=== PATIENT | female | born 1985 | race Caucasian/White ===

== ENCOUNTER 2018-02-16 23:44 | Inpatient (IN) | payer OTHER, SELFPAY ==
[2018-02-17 00:20] LABS: #Basophils 0.1 thou/uL (0.0-0.2); #Eosinphils 0.7 thou/uL (0.0-0.7); #Lymphocytes 3.4 thou/uL (1.20-3.40); #Monocytes 1.1 thou/uL (0.11-0.59); #Neutrophils 10.4 thou/uL (1.40-6.50); %Basophils 0.9 % (0.0-1.0); %Eosinophils 4.5 % (0.0-10.0); %Lymphocytes 21.6 % (21.0-51.0); %Monocytes 6.9 % (0.0-10.0); Hemoglobin 15.6 g/dL (12.0-16.0); Mean Corpuscular HGB CONC 33.3 g/dL (32.0-36.0); Mean Corpuscular Hemoglobin 31.4 pg (27.0-31.0); Mean Corpuscular Volume 94.2 fL (78.0-98.0); Mean Platelet Volume 7.8 fL (7.4-10.4); Platelet Count 286 thou/uL (130-400); RBC Distribution Width 12.2 % (11.5-14.5); Red Blood Cell (RBC) Count 4.98 mill/uL (4.20-5.40); White Blood Cell (WBC) Count 15.8 thou/uL (4.8-10.8)
[2018-02-17] MEDS ORDERED: Morphine 4 MG/ML VIAL ONE ×2 (00:24→01:57)
[2018-02-17] MEDS ORDERED: Ondansetron PF 4 MG/2 ML Vial ONE ×2 (00:24→11:09)
[2018-02-17] MEDS ORDERED: Ketorolac Tromethamine 30 MG/ML VIAL ONE ×2 (00:57→11:09)
[2018-02-17 01:45] LABS: BHCG - Serum Negative (NEGATIVE); Pregs Control Background? CLEAR/WHITE (CLR/WHITE); Pregs Control Bar Appear? YES (CONTROL BAR)
[2018-02-17] MEDS ORDERED: diphenhydrAMINE 50 MG/ML VIAL ONE (02:06)
[2018-02-17 02:11] LABS: ALT (SGPT) 24 U/L (8-55); AST (SGOT) 16 U/L (5-34); Albumin 3.9 g/dL (3.5-5.0); Alkaline Phosphatase 110 U/L (40-150); Anion Gap 13 mmol/L (10-20); BUN (Urea Nitrogen) 14 mg/dL (7.0-18.7); Bilirubin, Total 0.4 mg/dL (0.2-1.2); CK (CPK) 31 U/L (29-168); Calc. Creatinine Clearance 0 mL/min (70-130); Calcium 8.8 mg/dL (7.8-10.44); Carbon Dioxide 24 mmol/L (22-29); Chloride 105 mmol/L (98-107); Estimated GFR-MDRD 74; Globulin 2.8 g/dL (2.4-3.5); Glucose 118 mg/dL (70-105); Potassium 4.7 mmol/L (3.5-5.1); Protein, Total 6.7 g/dL (6.0-8.3); Sodium 137 mmol/L (136-145)
[2018-02-17] MEDS ORDERED: Ondansetron PF 4 MG/2 ML Vial IVP PRN (04:06)
[2018-02-17] MEDS ORDERED: Ondansetron ODT 4 MG TAB SL PRN (04:06)
[2018-02-17] MEDS ORDERED: Acetaminophen 1,000 MG in Premix Bag 1 BAG IVPB PRN (04:06)
[2018-02-17] MEDS: Sodium Chloride 0.9% 1,000 ML IV SCH ×2 (04:51→15:05)
--- NOTE | 2018-02-17 08:13 | RAD ---
PORTABLE UPRIGHT FRONTAL CHEST RADIOGRAPH: DATE: 02/17/2018. COMPARISON: None. HISTORY: Chest pain. FINDINGS: No pneumothorax, pleural fluid, focal consolidation, or alveolar edema. Heart and mediastinal contou rs appear grossly unremarkable. IMPRESSION: No acute findings. POS: [facility]
--- NOTE | 2018-02-17 08:54 | ULT ---
PRELIMINARY REPORT/[facility]/EMERGENTY AFTER-HOURS PROCEDURE US Abdomen Limited, Right Upper Quadrant EXAM DATE/TIME: 02/17/2018 12:41 AM CLINICAL HISTORY: 33 years old, female; Pain and signs and symptoms; Nausea and vomiting; Abdominal pain; Other: Epigas tric pain that radiates to back TECHNIQUE: Real-time ultrasound of the abdomen with image documentation. Examination was focused on the right up per quadrant. COMPARISON: No relevant prior studies available. FINDINGS: Liver: Hepatic steatosis. Gallbladder: Gallbladder is distended. Large gallstone at the neck of the gallbladder. No gallbladder wall thickening or pericholecystic fluid. No gallbladder wall thickening or pericholecystic fluid. S onographic Mcclendon sign is reported positive. Common bile duct: Normal. No stones. No dilation. Pancreas: Visualized pancreas is unremarkable. Right kidney: Normal. No mass. No hydronephrosis. IMPRESSION: 1. Cholelithiasis. No cholecystitis. 2. Cholelithiasis. Distended gallbladder with reported positive sonographic Mcclendon's sign; however, n o gallbladder wall thickening or pericholecystic fluid to definitively indicate acute cholecystitis. Early cholecystitis not excluded. Consider CT scan, preferably with intravenous contrast. Thank you for allowing us to participate in the care of your patient. Dictated and Authenticated by: Konstantin Muhammad MD 02/17/2018 1:11 AM Central Time ([place] & [place]) FINAL REPORT RIGHT UPPER QUADRANT ULTRASOUND: Date: 02/17/18 HISTORY: Nausea and vomiting. Right upper quadrant pain. FINDINGS: Imaged pancreas unremarkable. No focal liver lesion or intrahepatic biliary dilatation noted. There is a prominent stone in the region of the gallbladder neck measuring at least 2.6 cm in transve rse dimension. The commodities broker reports a positive Mcclendon's sign. No gallbladder wall thickening. No p ericholecystic fluid. Right kidney measures 9.5 cm craniocaudal dimension and demonstrates no evidence for stone, hydroneph rosis, or mass lesion. On decubitus imaging, the stone within the region of the gallbladder neck is not new, suggesting that it is potentially impacted in the region of the neck. CBD measures 5.0 mm, within normal limits. IMPRESSION: Cholelithiasis with positive Mcclendon's sign. Findings could represent acute cholecystitis in the prope r clinical setting, but no gallbladder wall thickening is seen and there is no pericholecystic fluid. If further imaging assessment is clinically warranted, a hepatobiliary scan would be the study of ch oice to evaluate for patency of the cystic duct. This report is in agreement with the preliminary report given by Edith. POS: [facility]
--- NOTE | 2018-02-17 08:56 | CT ---
PRELIMINARY REPORT/[facility]/EMERGENTY AFTER-HOURS PROCEDURE CT Abdomen and Pelvis With Contrast EXAM DATE/TIME: 02/17/2018 1:52 AM CLINICAL HISTORY: 33 years old, female; Pain; Abdominal pain; Localized; Right upper quadrant (ruq); Patient HX: Er 8; 33 y/o f with no pmhx presents with acute onset of upper abdominal pain. She reports that it is assoc iated with SOB, n/v, and dizziness. She had 4 episodes of emesis on the way here. She took two baby aspirin at home. She has never experienced a pain like this before. She denies f/c, dysuria, hematuria, diarrhea TECHNIQUE: Axial computed tomography images of the abdomen and pelvis with intravenous contrast. Coronal reforma tted images were created and reviewed. COMPARISON: US Gallbladder RUQ 02/17/2018 12:41 AM FINDINGS: Lower thorax: No acute findings. ABDOMEN: Liver: Hepatic steatosis. Gallbladder and bile ducts: Gallbladder is distended and there is minimal inflammatory prominence of the gallbladder wall, consistent with acute cholecystitis. No biliary ductal dilatation. Noncalcified gallstone at the neck of the gallbladder. Pancreas: Normal. No ductal dilation. Spleen: Normal. No splenomegaly. Adrenals: Normal. No mass. Kidneys and ureters: Extensive cortical scarring of the right kidney. Kidneys otherwise unremarkable. Stomach and bowel: Normal. No obstruction. No mucosal thickening. Appendix: Normal appendix. PELVIS: Bladder: Unremarkable as visualized. Reproductive: Unremarkable as visualized. ABDOMEN and PELVIS: Intraperitoneal space: Normal. No free air. No significant fluid collection. Bones/joints: No acute fracture. No dislocation. Soft tissues: Unremarkable. Vasculature: Normal. No abdominal aortic aneurysm. Lymph nodes: Normal. No enlarged lymph nodes. IMPRESSION: 1. Gallbladder is distended and there is minimal inflammatory prominence of the gallbladder wall, con sistent with acute cholecystitis. 2. Noncalcified gallstone at the neck of the gallbladder. Thank you for allowing us to participate in the care of your patient. Dictated and Authenticated by: Konstantin Muhammad MD 02/17/2018 2:03 AM Central Time ([place] & [place]) FINAL REPORT EMERGENT AFTER HOURS CT ABDOMEN AND SANDIE WITH IV CONTRAST: DATE: 02/17/2018. HISTORY: Acute onset of right upper quadrant abdominal pain. Cholelithiasis. Nausea, vomiting, and shortness of breath. IMPRESSION: 1. No CT evidence of appendicitis. 2. Atrophy right kidney with multiple focal areas of scarring involving the right kidney. 3. Distention of the gallbladder. There is a calculus in the neck of the gallbladder which is not c alcified and better visualized on right upper quadrant ultrasound obtained just prior to this exam. There are very slight adjacent pericholecystic inflammatory changes present. In the correct clinical scenario, findings could be related to cholecystitis. The common duct is not dilated. 4. No CT evidence of appendicitis. 5. Right renal atrophy and multifocal areas of cortical scarring involving the right kidney. 6. Findings are in agreement with the preliminary report by [facility]. POS: [facility]
[2018-02-17 10:55] LABS: #Basophils 0.1 thou/uL (0.0-0.2); #Eosinphils 0.6 thou/uL (0.0-0.7); #Lymphocytes 3.3 thou/uL (1.20-3.40); #Neutrophils 7.6 thou/uL (1.40-6.50); %Basophils 0.7 % (0.0-1.0); %Lymphocytes 26.1 % (21.0-51.0); %Monocytes 8.1 % (0.0-10.0); %Neutrophils 60.1 % (42.0-75.0); Hemoglobin 13.7 g/dL (12.0-16.0); Mean Corpuscular Hemoglobin 32.6 pg (27.0-31.0); Mean Corpuscular Volume 93.2 fL (78.0-98.0); Mean Platelet Volume 7.5 fL (7.4-10.4); Platelet Count 254 thou/uL (130-400); RBC Distribution Width 11.9 % (11.5-14.5); Red Blood Cell (RBC) Count 4.19 mill/uL (4.20-5.40); White Blood Cell (WBC) Count 12.7 thou/uL (4.8-10.8)
[2018-02-17] MEDS ORDERED: Rocuronium Bromide 10 MG/ML (10ML VIAL) ONE (11:09)
[2018-02-17] MEDS ORDERED: PROPOFOL 200 MG/20 ML VIAL ONE (11:09)
[2018-02-17] MEDS ORDERED: Glycopyrrolate 0.2 MG/ML 5 ML SYRINGE ONE (11:09)
[2018-02-17] MEDS ORDERED: Lidocaine 1% PF 5 ML VIAL ONE (11:09)
[2018-02-17] MEDS ORDERED: ISOVUE-370 76%-LOCM 1 ML ONE (11:21)
[2018-02-17] MEDS ORDERED: Bupivacaine/Epinephrine 0.25% 30 ML VIAL ONE (11:36)
[2018-02-17] MEDS ORDERED: Fentanyl 100 MCG/2 ML VIAL ONE (11:51)
--- NOTE | 2018-02-17 11:56 | HP ---
CHIEF COMPLAINT: Epigastric abdominal pain. HISTORY OF PRESENT ILLNESS: The patient is an obese 33-year-old white female. She presented to the emergency room last night complaining of chest pain radiating through her back and right shoulder. She had several episodes of emesis. In the emergency room, she was evaluated with radiological and laboratory studies. The laboratory studies revealed elevated white blood cell count of 15.8 with hemoglobin of 15.6. Chemistry profile was normal except for slightly elevated glucose level of 118. Ultrasound was obtained initially revealing cholelithiasis. For some reason, a CT scan was also obtained again confirming cholelithiasis and a distended gallbladder without any other significant abnormal findings. She was admitted to my service. PAST MEDICAL HISTORY: Negative. PAST SURGICAL HISTORY: None. MEDICATIONS: None. ALLERGIES: PENICILLIN, HYDROCODONE, CODEINE, AND MORPHINE (SHE APPARENTLY HAD AN ALLERGIC REACTION TO MORPHINE LAST NIGHT). PERSONAL AND SOCIAL HISTORY: She is single and has never been . She has two children. She smokes about a pack of cigarettes per week. She does not drink alcohol. She works at a local hotel. She does not have a primary care physician. Although, she had lived here for her entire life. She had moved to [place] a couple of years ago and moved back about 2 months ago. PHYSICAL EXAMINATION: VITAL SIGNS: She is afebrile. Vital signs within normal limits. GENERAL: She is a well-developed, well-nourished, pleasant white female, resting in bed, in no acute distress. She is asleep when I arrived. She is alert and oriented x3. HEAD, EYES, EARS, NOSE, AND THROAT: Unremarkable. NECK: Supple without mass or tenderness. LUNGS: Clear to auscultation throughout. CARDIAC: Regular rate and rhythm without murmur. ABDOMEN: Soft without focal tenderness this time. EXTREMITIES: Unremarkable. ASSESSMENT: The patient with cholelithiasis and an episode of severe biliary colic. When she presented, she had a gallstone stuck in the neck of her gallbladder causing the pain. I recommend laparoscopic cholecystectomy. I discussed the operation in detail with the patient as well as potential risks. She understands and agrees to proceed with surgery at this time. Job ID: [id number]
[2018-02-17] MEDS ORDERED: Lidocaine 2% Jelly 5 ML TUBE ONE (12:38)
[2018-02-17] MEDS ORDERED: Midazolam HCl 2 mg/2 ml Vial ONE (12:38)
[2018-02-17] MEDS ORDERED: CEFAZOLIN 2 GM/50 ML BAG ONE (12:44)
[2018-02-17] MEDS ORDERED: Ondansetron HCl/PF 4 MG/2 ML Vial IVP PRN (14:13)
[2018-02-17] MEDS ORDERED: Promethazine HCl 25 MG/ML VIAL SLOW IVP PRN (14:13)
[2018-02-17] MEDS ORDERED: Promethazine HCl 25 MG/ML VIAL IM PRN (14:13)
[2018-02-17] MEDS ORDERED: Albuterol Sulfate HFA (OR ONLY) ONE (14:18)
[2018-02-17 17:32] VITALS: BP 109/58
[2018-02-17 17:33] VITALS: TEMP 97.5
--- NOTE | 2018-02-18 16:38 | OP ---
DATE OF PROCEDURE: 02/17/2018 PREOPERATIVE DIAGNOSIS: Symptomatic cholelithiasis with cholecystitis. POSTOPERATIVE DIAGNOSIS: Symptomatic cholelithiasis with cholecystitis. OPERATION PERFORMED: Laparoscopic cholecystectomy. ANESTHESIA: General endotracheal. INDICATIONS: The patient is a 33-year-old white female. She presents with symptoms referable to her gallbladder and ultrasound proven cholelithiasis. She was taken to the operative room at this time for laparoscopic cholecystectomy. DESCRIPTION OF PROCEDURE: Informed consent was obtained. The patient was taken to the operating room where general endotracheal anesthesia was obtained with the patient in the supine position. The abdomen was prepped with Betadine and draped in the usual sterile fashion. 0.25% Marcaine with epinephrine was infiltrated below the umbilicus and a 10 mm infraumbilical incision was created. A Veress needle was passed through this incision into the peritoneal cavity. A pneumoperitoneum was established using carbon dioxide up to a pressure of 15 mmHg. Local anesthetic was infiltrated and 3 additional 5 mm right upper quadrant incisions were created. Through the mid incision, a 5 mm port was passed into the peritoneal cavity. The camera was passed through this port and under direct vision, an 11 port was passed through the infraumbilical incision. The camera was replaced through this port, and under direct vision, 2 additional 5 mm ports were passed through the incisions already created. The gallbladder was grasped and retracted in a cephalad direction. Minimal adhesions were bluntly stripped away from the apex of the gallbladder, and the apex was retracted laterally and inferiorly. Careful dissection was carried out to the apex of the gallbladder to identify the cystic duct and cystic artery. These were each carefully dissected circumferentially. The duct was of normal caliber. Both the duct and the artery were divided between clips, leaving 2 on the side to remain within the abdomen. The gallbladder was then dissected out of the gallbladder fossa using electrocautery and removed through the infraumbilical port site. The fascia was closed with 0 Vicryl suture and a GraNee needle. The right upper quadrant was inspected and irrigated. All irrigant was aspirated. All ports and instruments were removed under direct vision. Pneumoperitoneum was carefully evacuated. Additional local anesthetic was infiltrated into each port site. The skin edges were approximated with 4-0 Monocryl subcuticular sutures, and Dermabond was placed externally. There were no complications. The patient tolerated the procedure well and was taken to the recovery room in stable condition. FINDINGS: The patient had a single large obstructing gallstone. The duct was small and noninflamed. There were moderate adhesions to the gallbladder. There was essentially no blood loss during the course of the operation. Job ID: [id number]
== END 2018-02-17 17:36 | disposition home or self-care (01) | DRG 419 ==
LOC: ERS 23:44 → SURG A 02-17 03:45
PROVIDERS: ADMIT Specialist; ATTEND Specialist
PROC: 0FT44ZZ Resection of Gallbladder, Percutaneous Endoscopic Approach (ICD-10-PCS; principal; 2018-02-17)
DX: K80.62 Calculus of gallbladder and bile duct with acute cholecystitis without obstruction (principal); F17.210 Nicotine dependence, cigarettes, uncomplicated; Z88.0 Allergy status to penicillin; Z88.5 Allergy status to narcotic agent; Z88.8 Allergy status to other drugs, medicaments and biological substances
CPT/HCPCS: 36415; 71045; 74177; 76705; 80053; 82550; 83690; 84484; 84703; 85025; 88304; 93005; 94760; 96365; 96375; 96376; J0131; J1200; J1885; J1956; J2001; J2250; J2270; J2405; J2704; J3010

== ENCOUNTER 2018-02-19 17:04 | Observation (INO) | payer SELFPAY ==
[~2018-02-19 17:04] MED LIST: Iopamidol 370 76% 100 ML VIAL ONE
[2018-02-19 17:34] LABS: #Eosinphils 0.5 thou/uL (0.0-0.7); #Lymphocytes 2.6 thou/uL (1.20-3.40); #Monocytes 0.9 thou/uL (0.11-0.59); #Neutrophils 9.5 thou/uL (1.40-6.50); %Basophils 0.3 % (0.0-1.0); %Eosinophils 3.5 % (0.0-10.0); %Lymphocytes 19.2 % (21.0-51.0); %Monocytes 6.4 % (0.0-10.0); %Neutrophils 70.6 % (42.0-75.0); Hemoglobin 15.1 g/dL (12.0-16.0); Mean Corpuscular HGB CONC 34.8 g/dL (32.0-36.0); Mean Corpuscular Hemoglobin 32.2 pg (27.0-31.0); Mean Corpuscular Volume 92.5 fL (78.0-98.0); Platelet Count 301 thou/uL (130-400); RBC Distribution Width 11.7 % (11.5-14.5); Red Blood Cell (RBC) Count 4.67 mill/uL (4.20-5.40); White Blood Cell (WBC) Count 13.4 thou/uL (4.8-10.8)
[2018-02-19] MEDS ORDERED: Fentanyl 100 MCG/2 ML VIAL ONE ×2 (17:36→20:38)
[2018-02-19] MEDS ORDERED: Ketorolac Tromethamine 30 MG/ML VIAL ONE (17:36)
[2018-02-19] MEDS ORDERED: Ondansetron PF 4 MG/2 ML Vial ONE (17:36)
[2018-02-19 17:55] LABS: ALT (SGPT) 27 U/L (8-55); AST (SGOT) 20 U/L (5-34); Albumin 4.2 g/dL (3.5-5.0); Alkaline Phosphatase 95 U/L (40-150); Anion Gap 16 mmol/L (10-20); BUN (Urea Nitrogen) 10 mg/dL (7.0-18.7); Bilirubin, Total 0.9 mg/dL (0.2-1.2); Calc. Creatinine Clearance 0 mL/min (70-130); Calcium 9.4 mg/dL (7.8-10.44); Carbon Dioxide 23 mmol/L (22-29); Chloride 101 mmol/L (98-107); Estimated GFR-MDRD Greater than 90; Globulin 3.1 g/dL (2.4-3.5); Glucose 95 mg/dL (70-105); Lipase 8 U/L (8-78); Potassium 3.9 mmol/L (3.5-5.1); Protein, Total 7.3 g/dL (6.0-8.3); Sodium 136 mmol/L (136-145)
[2018-02-19] MEDS ORDERED: MEROPENEM 1 GM/50 ML 1 GM in Premix Bag 1 BAG IVPB SCH (18:45)
[2018-02-19] MEDS ORDERED: Promethazine HCl 25 MG/ML VIAL ONE (21:40)
[2018-02-19 22:05] LABS: Bilirubin Negative (Negative); Blood, Urine Negative (Negative); Clarity CLEAR (Clear); Glucose, Urine (Dipstick) Negative (Negative); Leukocyte Negative (Negative); Nitrite Negative (Negative); Protein, Urine (Dipstick) Negative (Neg-Trace)
--- NOTE | 2018-02-19 23:04 | CT ---
ABDOMEN AND PELVIS CT SCAN WITH IV CONTRAST: History: Status post cholecystectomy with vomiting. FINDINGS: Lung bases appear clear. There is some mild fat stranding in the operative bed and surrounding mesent dora consistent with routine post cholecystectomy change. No ductal dilatation. Pancreas, spleen, and adrenal glands are unremarkable. Scarring of the right kidney. There is some minimal thickening and f at stranding at the level of the umbilicus, again post-surgical. No significant free intraperitoneal fluid. No bowel obstruction. Normal appearing appendix. No abscess or abnormal fluid collection. Gillian ral borderline sized small bowel loops, possibly some mild ileus. IMPRESSION: Recent post op cholecystectomy changes. No abscess. No ductal dilatation. No evidence for biloma or o ther abnormal fluid collection. Stable scarring of the right kidney. Normal appearing appendix. No ot her significant acute process. POS: [facility]
[2018-02-19] MEDS ORDERED: Mag-Al 1200 mg/1200 mg/30 ML UDCUP PO PRN (23:27)
[2018-02-19] MEDS ORDERED: Promethazine HCl 25 MG/ML VIAL IM PRN (23:27)
[2018-02-19] MEDS ORDERED: Calcium Carbonate 500 MG ChewTAB PO PRN (23:27)
[2018-02-19] MEDS ORDERED: Acetaminophen 1,000 MG in Premix Bag 1 BAG IVPB PRN (23:27)
[2018-02-19] MEDS ORDERED: Ondansetron PF 4 MG/2 ML Vial IVP PRN (23:27)
[2018-02-19] MEDS ORDERED: Dextrose 5% in Water 1,000 ML IV PRN (23:27)
[2018-02-19] MEDS ORDERED: Dextrose 50% Abboject 50 ML SYRINGE SLOW IVP PRN (23:27)
[2018-02-19] MEDS ORDERED: hydrALAZINE 20 MG/ML VIAL SLOW IVP PRN (23:27)
[2018-02-20] MEDS: D5 1/2 NS w/20 mEq KCL 1,000 ML IV SCH ×3 (00:01→21:18)
[2018-02-20 00:37] VITALS: BMI 33.7
[2018-02-20] MEDS: Ketorolac Tromethamine 30 MG/ML VIAL IVP PRN ×2 (02:18→11:47)
[2018-02-20] MEDS: Meropenem 2 GM in Sodium Chloride 0.9% 100 ML IVPB SCH ×3 (04:09→22:00)
[2018-02-20] MEDS ORDERED: Ondansetron ODT 4 MG TAB PO PRN (12:58)
[2018-02-20 13:17] LABS: #Basophils 0.1 thou/uL (0.0-0.2); #Eosinphils 0.7 thou/uL (0.0-0.7); #Lymphocytes 3.1 thou/uL (1.20-3.40); #Monocytes 0.7 thou/uL (0.11-0.59); #Neutrophils 5.9 thou/uL (1.40-6.50); %Basophils 0.7 % (0.0-1.0); %Eosinophils 6.5 % (0.0-10.0); %Lymphocytes 29.4 % (21.0-51.0); %Monocytes 6.6 % (0.0-10.0); %Neutrophils 56.8 % (42.0-75.0); Hemoglobin 13.9 g/dL (12.0-16.0); Mean Corpuscular HGB CONC 34.1 g/dL (32.0-36.0); Mean Corpuscular Hemoglobin 31.7 pg (27.0-31.0); Mean Corpuscular Volume 92.9 fL (78.0-98.0); Mean Platelet Volume 7.5 fL (7.4-10.4); Platelet Count 280 thou/uL (130-400); RBC Distribution Width 11.7 % (11.5-14.5); Red Blood Cell (RBC) Count 4.37 mill/uL (4.20-5.40); White Blood Cell (WBC) Count 10.4 thou/uL (4.8-10.8)
--- NOTE | 2018-02-20 13:23 | PRG ---
DATE OF SERVICE: 02/20/2018 SUBJECTIVE: Ms. Vargas is postoperative day #3 from laparoscopic cholecystectomy. Her surgery was uneventful. She did have a large impacted obstructing gallstone at the time of surgery. She was discharged home shortly after surgery. She returned to the emergency room last night and was admitted in my absence by Dr. Phillips. She was complaining of some pain with nausea and vomiting. She apparently could not stop vomiting. She had been discharged home with tramadol, but no nausea medication. She was admitted and placed on IV fluids and given Toradol and clear liquid diet. Her laboratory evaluation when she was admitted last night showed that she had a white blood cell count that was elevated at 13.4, hemoglobin was stable at 15.1. Her chemistry profile was entirely normal. Her creatinine was 0.7, actually down from her last lab study. Her liver function tests were normal as was her lipase. A CT scan that was obtained at the time of her readmission was unremarkable, showing no evidence of any fluid collection or significant inflammatory change. She tells me today that she still "feels miserable." She is having trouble with nausea. She has not been out of bed since she has been admitted. She has tried some clear liquids. She has not had a bowel movement since surgery. PHYSICAL EXAMINATION: VITAL SIGNS: On examination, she is afebrile with temperature of 97.7, pulse is 78 and stable, and blood pressure is 120/66. LUNGS: Clear to auscultation. ABDOMEN: Soft. All incisions are healing nicely. She has hypoactive bowel sounds. ASSESSMENT: Overall, she appears to be stable. I am not certain why she is having issues with nausea. She does not seem to have any surgical or medical reason for this. I will treat her constipation with enema and MiraLAX. I am going to repeat her CBC to see if her white blood cell count has normalized after a night of IV fluids. It does not look like she would be ready to go home today, and hopefully therefore with nausea medication and some IV fluids that she will be ready for discharge home tomorrow. Job ID: [id number]
[2018-02-20] MEDS ORDERED: Fleet Enema 133 ML BOT FS SCH (13:45)
[2018-02-20] MEDS ORDERED: Polyethylene Glycol 3350 17 GM Packet PO SCH (13:45)
[2018-02-20] MEDS: Famotidine 20 MG TAB PO SCH ×2 (18:20→21:19)
[2018-02-20] MEDS: Famotidine/PF 20 mg/2ml Vial SLOW IVP SCH ×2 (18:20→22:00)
[2018-02-20] MEDS: Polyethylene Glycol 3350 17 GM Packet PO SCH (22:00)
[2018-02-21] MEDS: D5 1/2 NS w/20 mEq KCL 1,000 ML IV SCH ×2 (03:07→09:05)
[2018-02-21] MEDS: Meropenem 2 GM in Sodium Chloride 0.9% 100 ML IVPB SCH ×2 (05:01→13:13)
[2018-02-21 06:04] LABS: #Basophils 0.1 thou/uL (0.0-0.2); #Eosinphils 0.6 thou/uL (0.0-0.7); #Monocytes 0.9 thou/uL (0.11-0.59); #Neutrophils 6.4 thou/uL (1.40-6.50); %Basophils 0.5 % (0.0-1.0); %Eosinophils 5.7 % (0.0-10.0); %Lymphocytes 27.2 % (21.0-51.0); %Monocytes 8.3 % (0.0-10.0); %Neutrophils 58.3 % (42.0-75.0); Hemoglobin 13.2 g/dL (12.0-16.0); Mean Corpuscular HGB CONC 34.5 g/dL (32.0-36.0); Mean Corpuscular Hemoglobin 31.9 pg (27.0-31.0); Mean Corpuscular Volume 92.6 fL (78.0-98.0); Mean Platelet Volume 7.2 fL (7.4-10.4); Platelet Count 290 thou/uL (130-400); RBC Distribution Width 11.6 % (11.5-14.5); Red Blood Cell (RBC) Count 4.14 mill/uL (4.20-5.40); White Blood Cell (WBC) Count 10.9 thou/uL (4.8-10.8)
[2018-02-21 06:26] LABS: ALT (SGPT) 21 U/L (8-55); AST (SGOT) 23 U/L (5-34); Albumin 3.3 g/dL (3.5-5.0); Alkaline Phosphatase 80 U/L (40-150); Anion Gap 12 mmol/L (10-20); BUN (Urea Nitrogen) 7 mg/dL (7.0-18.7); Bilirubin, Total 0.6 mg/dL (0.2-1.2); Calc. Creatinine Clearance 163 mL/min (70-130); Calcium 8.7 mg/dL (7.8-10.44); Carbon Dioxide 25 mmol/L (22-29); Chloride 105 mmol/L (98-107); Estimated GFR-MDRD Greater than 90; Globulin 3.2 g/dL (2.4-3.5); Glucose 86 mg/dL (70-105); Potassium 4.8 mmol/L (3.5-5.1); Protein, Total 6.5 g/dL (6.0-8.3); Sodium 137 mmol/L (136-145)
[2018-02-21] MEDS: Famotidine 20 MG TAB PO SCH (09:05)
[2018-02-21] MEDS: Polyethylene Glycol 3350 17 GM Packet PO SCH (09:05)
[2018-02-21] MEDS: Famotidine/PF 20 mg/2ml Vial SLOW IVP SCH (09:05)
[2018-02-21 11:44] VITALS: BP 114/56; TEMP 97.6
--- NOTE | 2018-02-22 12:08 | DIS ---
DATE OF ADMISSION: 02/19/2018 DATE OF DISCHARGE: 02/21/2018 ADMISSION DIAGNOSIS: Postoperative nausea and pain. DISCHARGE DIAGNOSIS: Postoperative nausea and pain, resolved. ADMISSION HISTORY: The patient is a 33-year-old white female. She presented to the hospital 2 days following her laparoscopic cholecystectomy for cholelithiasis and cholecystitis. Her imaging and laboratory studies were essentially unremarkable. It took 2 days after her admission before her nausea resolved to the point that she is tolerating a diet appropriately. She tells me she feels much better at this time. She is tolerating her diet uneventfully. She still had a bowel movement. She has been given a couple of doses of MiraLAX. She is still stable for discharge. I will see her back in 2 weeks for routine follow up in my office. Job ID: [id number]
== END 2018-02-21 15:14 | disposition home or self-care (01) ==
LOC: ERS 17:04 → ERHOLD 21:22 → 3SE 23:25
PROVIDERS: ADMIT Specialist; ATTEND Specialist
DX: K91.0 Vomiting following gastrointestinal surgery (principal); G89.18 Other acute postprocedural pain; F17.210 Nicotine dependence, cigarettes, uncomplicated; Z88.0 Allergy status to penicillin; Z88.2 Allergy status to sulfonamides; Z88.5 Allergy status to narcotic agent; Z91.040 Latex allergy status
CPT/HCPCS: 36415; 74177; 80053; 81003; 83690; 85025; 87040; 96361; 96365; 96366; 96367; 96375; 96376; G0378; J0131; J1885; J2185; J2405; J2550; J3010; J7050; Q0162